=== PATIENT | male | born 1940 | race Caucasian/White ===

== ENCOUNTER 2019-04-07 10:56 | Emergency (ER) | payer MEDICARE, OTHER ==
[~2019-04-07] VITALS: Ht 188 cm; Wt 94.3 kg
[~2019-04-07 10:56] MED LIST: ASPIRIN EC81 M1; CALCITRATE200 MG; COUMADIN PO; FISH OIL 1,001000 MG; FLOMAX PO; FLONASE; GLUCOSAMINE HC500 MG; JANTOVEN10 MG; L-LYSINE1000 M1; SIMVASTATIN80 MG; VITAMINC500
[2019-04-07] MEDS ORDERED: DICLOFENAC SODI25 MG PO (11:07)
[2019-04-07] MEDS ORDERED: CLOPIDOGREL75 MG PO (11:07)
[2019-04-07] MEDS ORDERED: LIPITOR10 MG PO (11:08)
[2019-04-07 11:28] LABS: ABSOLUTE EOSINOPHILS 0.1 thou/uL (0.0-0.7); ABSOLUTE LYMPHOCYTES 2.5 thou/uL (0.8-5.3); ABSOLUTE MONOCYTES 0.8 thou/uL (0.0-1.2); ABSOLUTE NEUTROPHILS 3.9 thou/uL (1.6-8.1); BASOPHILS 0.2 %; EOSINOPHILS 1.4 %; HEMATOCRIT 40.5 % (42.0-52.0); HEMOGLOBIN 13.7 gm/dL (14.0-18.0); LYMPHOCYTES 34.5 %; MCH 30.4 pg (26.0-34.0); MCHC 33.7 g/dL (28.0-37.0); MCV 90.1 fL (80.0-100.0); MONOCYTES 10.6 %; MPV 8.1 fl. (7.2-11.1); NUCLEATED RBCS 0 /100WBC; PLATELET COUNT* 210 thou/uL (150-400); POLYS 53.3 %; RBC 4.49 mil/uL (4.50-6.00); RDW-CV 13.5 % (10.5-14.5); WBC 7.3 thou/uL (4.0-11.0)
[2019-04-07 11:33] LABS: ANION GAP 8 mmol/L (7-16); BUN 18 mg/dL (7-18); CALCIUM 10.4 mg/dL (8.5-10.1); CHLORIDE 107 mmol/L (98-107); CO2 28 mmol/L (21-32); CREATININE 1.3 mg/dL (0.6-1.3); GLUCOSE 123 mg/dL (70-99); SODIUM 143 mmol/L (136-145)
[2019-04-07 11:42] LABS: ALKALINE PHOSPHATASE 82 U/L (46-116); LIPASE 58 U/L (73-393); SGOT 25 U/L (15-37); SGPT 26 U/L (30-65); TOTAL BILIRUBIN 0.6 mg/dL (<0.1-1.0); TOTAL PROTEIN 7.5 g/dL (6.4-8.2); TROPONIN-I LEVEL <0.06 ng/mL (<0.06)
[2019-04-07 12:51] LABS: URINE BILIRUBIN NEGATIVE (Negative); URINE BLOOD 3+ (Negative); URINE CLARITY CLEAR; URINE COLOR YELLOW; URINE GLUCOSE-RANDOM NEGATIVE (Negative); URINE KETONES 1+ (Negative); URINE LEUKOCYTES-REFLEX NEGATIVE (Negative); URINE NITRITE-REFLEX NEGATIVE (Negative); URINE PROTEIN TRACE (Negative); URINE SPECIFIC GRAVITY 1.025 (1.005-1.030); URINE UROBILINOGEN 0.2 E.U./dl (0.2-1.0)
[2019-04-07 13:04] LABS: SQUAMOUS 4-10 Moderate /LPF (0-3)
[2019-04-07 13:05] LABS: BACTERIA-REFLEX 1-9 Few /HPF (None Seen); CASTS None Seen /LPF (None Seen); CRYSTALS None Seen /LPF (None Seen); MUCUS None Seen strn/LPF (None Seen); URINE RBC >20 Many /HPF (0-2); WBC CLUMPS Few (None Seen)
[2019-04-07] MEDS ORDERED: ZOFRAN ODT4 MG PO (14:07)
[2019-04-07] MEDS ORDERED: NORCO 5-325 TA1 EACH PO (14:07)
[2019-04-07] MEDS ORDERED: NORFLEX100 MG PO (14:07)
[2019-04-07 14:10] VITALS: BP 161/86
--- NOTE | 2019-04-07 15:39 | EKG ---
[place] [address] ELECTROCARDIOGRAM REPORT Name: ROSS AN ELLEN Room: [facility].#: [id number] Admission: 04/07/19 Attend Phys: Discharge: 04/07/19 Date of : 42 Report #: [id number] THIS REPORT FOR: //name// [facility] ED Test Date: 2019-04-07 Test Time: 11:02:53 Pat Name: ROSS AN Department: Room: Gender: M Tourist Agent: VISH : 1940 Requested By: Lilly Avila Order Number: [id number] MD: Jesus Jimenez Measurements Intervals [place] Rate: 65 P: 34 CO: 191 QRS: -11 QRSD: 94 T: 22 QT: 360 QTc: 375 Interpretive Statements Sinus rhythm Minimal ST elevation, anterior leads Baseline wander in lead(s) I,II,aVR,V1 No previous ECG available for comparison Electronically Signed On 04-07-2019 15:38:50 CDT by Jesus Jimenez [email or web address] <ELECTRONICALLY SIGNED> By: Jesus Jimenez MD, [facility] 04/07/19 1538 1102 01 Jesus Jimenez MD, FACC /EPI
== END 2019-04-07 14:11 | disposition home or self-care (01) ==
LOC: M.ERS 10:56
PROVIDERS: Personal Emergency Response Attendant
DX: N23 Unspecified renal colic (principal); E78.00 Pure hypercholesterolemia, unspecified; Z96.652 Presence of left artificial knee joint

== ENCOUNTER → 2019-07-05 | Day surgery (SDC) | payer MEDICARE, OTHER ==
[~2019-07-05] MED LIST changes: +CENTRUM SILVER1 EAC2 PO; +CLOPIDOGREL75 MG PO; +DICLOFENAC SODI25 MG PO; +LIPITOR10 MG PO; +LIPITOR40 MG PO; +LYSINE500 MG PO; +NORCO 5-325 TA1 EAC1 PO; +NORCO 5-325 TA1 EACH PO; +NORFLEX100 MG PO; -VITAMINC500; +VITAMINC500 PO; +VOLTAREN GEL 1100 G1 TOP; +XIIDRA1 EACH OPHTHALMIC; +ZOFRAN ODT4 MG PO
--- NOTE | ~2019-07-05 | OP ---
[address] [address] OPERATIVE REPORT Name: ROSS AN Room: [facility].#: [id number] Admission: 07/05/19 Attend Phys: Darren Lopes DO Discharge: Date of : 42 Report #: [id number] THIS REPORT FOR: //name// CC: Darren Young DATE OF SERVICE: 07/05/2019 PREOPERATIVE DIAGNOSIS: Right inguinal hernia. POSTOPERATIVE DIAGNOSES: Right inguinal hernia and left recurrent inguinal hernia. PROCEDURE: Da Torres robotic-assisted right inguinal hernia repair with mesh and da Torres robotic-assisted laparoscopic recurrent left inguinal hernia repair with mesh. SURGEON: Darren Lopes DO. RN CCU: Cheryl Degroot DO, PGY5 resident. ANESTHESIA: General endotracheal. ESTIMATED BLOOD LOSS: Less than 20 mL. COMPLICATIONS: None. REFERRING PHYSICIAN: Kiarra Leiva DO. DESCRIPTION OF PROCEDURE: After obtaining proper consents and discussing risks and complications with the patient, he was taken to the operating room, laid in the supine position, administered general anesthesia. He was then prepped and draped in the usual sterile fashion. Timeout was performed. We confirmed the appropriate patient and procedure. Preoperative antibiotics had been given. SCDs were in place. We then made a small supraumbilical skin incision with a #11 scalpel blade. This was carried down through the skin into the subcutaneous tissue using electrocautery for hemostasis. Once the fascia was encountered, it was incised along the midline, grasped and elevated with Lamont clamps and then the peritoneum was bluntly opened using a hemostat. Two 0 Vicryl sutures were placed in a [id number] fashion in the fascia to secure the da Torres camera port, which was then inserted. Once the camera port was inserted, insufflation was begun. Once insufflation was complete, full visual inspection of the anterior abdominal organs was performed. This immediately revealed a large right indirect inguinal hernia that had a loop of bowel going all the way down into the hernia sac on the left side. The patient [place] [address] OPERATIVE REPORT Name: JUVEROSS Room: [facility].#: [id number] Admission: 07/05/19 Attend Phys: Darren Lopes DO Discharge: Date of : 42 Report #: [id number] hernia repair with a mesh, which appeared to be rolled up laterally and there did appear to be a small recurrent indirect inguinal hernia. We elected to proceed with a bilateral inguinal hernia repair at this point. We then made an opening in the peritoneum from the median umbilical ligament laterally to the ASIS, first on the right hand side. The preperitoneal space was then developed all the way down medially to the pubic ramus and below it. I then continued the dissection laterally until we encountered the spermatic cord and cord structures and the large indirect inguinal hernia sac. The sac was completely dissected free from the cord. I did put a small hole in the hernia sac as I was dissecting it free and we repaired this later. I then continued the dissection laterally all the way out to the ASIS to allow for placement of a large Bard 3DMax mesh. At this point, we turned our attention to the left side where I opened the peritoneum from the median umbilical ligament laterally to the ASIS. Initially, the preperitoneal dissection was fairly simple until we got down by the cord and cord structures where the old mesh was somewhat adherent. I did use both blunt and sharp dissection and electrocautery to dissect the old mesh anteriorly away from the abdominal wall along with the peritoneum. I did also place a sponge in at this point in order to help with the dissection. Once I was able to free up the mesh all the way down to the pubic ramus medially and then also laterally out towards the ASIS and the hernia sac was reduced, I then decided to use a medium Bard 3DMax mesh after I measured this area. It was quite a small hernia, so we elected to go with the medium mesh, which was then inserted. The mesh was sutured in place to Urbano's ligament and then medial and lateral to the inferior epigastric vessels using 2-0 Vicryl suture. I then closed the peritoneum using a 2-0 absorbable V-Loc suture. I then also used a 2-0 Vicryl to close the hole in the peritoneum. I then turned my attention to the patient's right side where we used a large Bard 3DMax mesh, which was then inserted and opened in its entirety and then sutured in place to Urbano's ligament and then medial and lateral to the inferior epigastric vessels using a 2-0 Vicryl suture. I then closed the peritoneal flap using a running 2-0 absorbable V-Loc suture. There was another small hole in the hernia sac, which was closed using a 2-0 Vicryl suture as well. We then removed all of our needles and sponges, counts were found to be correct. We then undocked the da Torres robot. PMI closure device was used to close the larger 12 mm trocar site with 0 Vicryl suture. We then closed the supraumbilical fascia using the 2 previously placed 0 Vicryl sutures plus one additional 0 Vicryl suture. The skin incisions were all closed using 4-0 Monocryl subcuticular stitches. Mastisol, Steri-Strips, sterile OpSite and pressure dressings were placed. The patient tolerated the procedure well and was awakened in the operating room and transported to recovery room in stable condition. By: [id number] Lopes DO /nt
[2019-07-05 08:55] LABS: HEMATOCRIT 41.1 % (42.0-52.0); HEMOGLOBIN 13.9 gm/dL (14.0-18.0); MCHC 33.9 g/dL (28.0-37.0); MCV 88.7 fL (80.0-100.0); MPV 7.8 fl. (7.2-11.1); RBC 4.64 mil/uL (4.50-6.00); RDW-CV 13.4 % (10.5-14.5); WBC 5.9 thou/uL (4.0-11.0)
[2019-07-05 09:08] LABS: POTASSIUM 4.2 mmol/L (3.5-5.1)
[2019-07-05 09:13] LABS: ALBUMIN 3.9 g/dL (3.4-5.0); TOTAL BILIRUBIN 0.6 mg/dL (<0.1-1.0); TOTAL PROTEIN 7.3 g/dL (6.4-8.2)
== END | disposition home or self-care (01) ==
LOC: M.SUR 07:01
PROVIDERS: Surgery
DX: K40.90 Unilateral inguinal hernia, without obstruction or gangrene, not specified as recurrent (principal); K40.91 Unilateral inguinal hernia, without obstruction or gangrene, recurrent; E78.00 Pure hypercholesterolemia, unspecified; Z86.73 Personal history of transient ischemic attack (TIA), and cerebral infarction without residual deficits; Z79.899 Other long term (current) drug therapy; Z96.652 Presence of left artificial knee joint; Z86.711 Personal history of pulmonary embolism; Z79.01 Long term (current) use of anticoagulants; Z98.890 Other specified postprocedural states

== ENCOUNTER 2021-11-09 16:11 | Emergency (ER) | payer OTHER ==
[~2021-11-09] VITALS: Ht 188 cm; Wt 81.7 kg
[2021-11-09] MEDS ORDERED: TYLENOL325 MG PO (17:03)
[2021-11-09] MEDS ORDERED: PROSCAR 5MG TABL5 M1 PO (17:04)
[2021-11-09] MEDS ORDERED: MYRBETRIQ25 MG PO (17:05)
[2021-11-09] MEDS ORDERED: HYDROCHLOROTHIA25 M1 PO (17:05)
[2021-11-09] MEDS ORDERED: ONDANSETRON ODT8 MG PO (17:06)
[2021-11-09] MEDS ORDERED: MIRALAX119 GM PO (17:07)
[2021-11-09 19:18] VITALS: BP 99/55
== END 2021-11-09 19:19 | disposition home or self-care (01) ==
LOC: M.ERS 16:11
DX: S09.90XA Unspecified injury of head, initial encounter (principal); E78.00 Pure hypercholesterolemia, unspecified; Z90.89 Acquired absence of other organs; Z79.899 Other long term (current) drug therapy; W01.0XXA Fall on same level from slipping, tripping and stumbling without subsequent striking against object, initial encounter; Y93.89 Activity, other specified; Y92.89 Other specified places as the place of occurrence of the external cause; Y99.8 Other external cause status